=== PATIENT | male | born 1970 | race Caucasian/White ===

== ENCOUNTER → 2016-05-28 | Outpatient (REF) ==
--- NOTE | 2016-05-28 15:33 | REP ---
LUMBAR SPINE, THREE VIEWS: HISTORY: Degenerative disc disease. There is no acute fracture. The L4-5 and L5-S1 intervertebral discs are decreased in height consistent with disc degeneration. There are 3 mm of grade 1 spondylolisthesis of L5 on S1. There is partial sacralization of the L5 vertebral body. There is spina bifida occulta of L5. Surgical clips are present in the right upper quadrant. IMPRESSION: Degenerative change as described above. Signed by Vaughn Morales MD 05/28/2016 03:36 P
== END ==
LOC: M SMT 13:02
PROVIDERS: ATTEND Internal Medicine
DX: Z02.1 Encounter for pre-employment examination (principal)